=== PATIENT | female | born 1945 | race Caucasian/White ===

== ENCOUNTER 2018-08-27 11:32 | Emergency (ER) | payer OTHER ==
[~2018-08-27] VITALS: Ht 149.9 cm; Wt 55.8 kg
[2018-08-27 13:58] VITALS: BP 159/58
== END 2018-08-27 14:12 | disposition home or self-care (01) ==
LOC: ER 11:40
DX: J01.90 Acute sinusitis, unspecified (principal); E78.5 Hyperlipidemia, unspecified; Z90.49 Acquired absence of other specified parts of digestive tract; Z86.73 Personal history of transient ischemic attack (TIA), and cerebral infarction without residual deficits
CPT/HCPCS: 70450